=== PATIENT | female | born 1960 | race African-American/Black ===

== ENCOUNTER 2021-11-06 05:54 | Inpatient (IN) | payer MEDICAID ==
[~2021-11-06] VITALS: Ht 170.2 cm; Wt 94.3 kg
[2021-11-06 07:36] LABS: BASOPHILS % 0.3 % (0.0-2.0); EOSINOPHILS % 0.3 % (0.0-5.0); HEMATOCRIT. 38.8 % (36.0-48.0); HEMOGLOBIN. 12.5 g/dL (12.0-16.0); MEAN CORPUSCULAR HEMOGLOBIN 30.7 pg (28.0-32.0); MEAN CORPUSCULAR VOLUME 95.7 fL (81.0-99.0); MEAN PLATELET VOLUME 7.2 fl (7.4-10.4); MONOCYTES % 6.2 % (2.0-8.0); NEUTROPHILS % 84.2 % (40.0-76.0); PLATELET 242 x1000/uL (130-400); RED BLOOD CELL COUNT 4.06 mill/uL (4.2-5.4); RED CELL DISTRIBUTION WIDTH 15.6 % (11.6-14.6)
[2021-11-06 07:44] LABS: CHLORIDE 108 mEq/L (98-107)
[2021-11-06] MEDS ORDERED: ALBUTEROL (0.083%) 2.5MG/3ML NEB HHN STA (08:04)
[2021-11-06] MEDS ORDERED: IPRATROPIUM BROMIDE (0.02%) 0.5MG/2.5ML NEB HHN STA (08:04)
[2021-11-06] MEDS ORDERED: MAGNESIUM 2 G PREMIX 50 ML IV STA (08:04)
[2021-11-06] MEDS ORDERED: METHYLPREDNISOLONE SOD SUCC 125 MG/2 ML VIAL IV STA (08:04)
[2021-11-06] MEDS ORDERED: CEFTRIAXONE 1 G PREMIX 50 ML IV ONE (09:30)
[2021-11-06] MEDS ORDERED: AZITHROMYCIN 500MG/250ML 250 ML IV ONE (09:30)
[2021-11-06 09:37] LABS: PROTHROMBIN TIME 11.9 sec (9.6-11.0)
[2021-11-06 09:38] LABS: INR 1.1; PARTIAL THROMBOPLASTIN TIME 29.9 sec (23.4-31.0)
[2021-11-06] MEDS ORDERED: ACETAMINOPHEN 325MG TABLET PO PRN (10:45)
[2021-11-06] MEDS ORDERED: NA PHOS,M-B/NA PHOS,DI-BA ENEMA 118ML PR PRN (10:45)
[2021-11-06] MEDS ORDERED: CLONIDINE 0.1MG TABLET PO PRN (10:45)
[2021-11-06] MEDS ORDERED: NITROGLYCERIN 0.4MG TABLET SL SL PRN (10:45)
[2021-11-06] MEDS ORDERED: DOCUSATE SODIUM 100MG CAPSULE PO PRN (10:45)
[2021-11-06] MEDS ORDERED: BUTALBITAL/ACETAMINOPHEN/CAFFEINE 50/325/40MG TABLET PO PRN (10:45)
[2021-11-06] MEDS ORDERED: GUAIFENESIN 200MG/10ML SUGAR FREE UDC PO PRN (10:45)
[2021-11-06] MEDS ORDERED: IPRATROPIUM/ALBUTEROL 0.5-3(2.5)MG/3ML NEB NEB PRN (10:45)
[2021-11-06] MEDS ORDERED: MAGNESIUM/ALUMINUM HYDROXIDE/SIMETHICONE 30ML UDC PO PRN (10:45)
[2021-11-06] MEDS ORDERED: ONDANSETRON HCL 4MG/2ML INJ IV PRN (10:45)
[2021-11-06] MEDS: ACETAMINOPHEN 325MG TABLET PO PRN ×2 (11:50→21:18)
[2021-11-06 12:23] LABS: ETHANOL BLOOD < 10 mg/dL
[2021-11-06 12:26] LABS: LDL CHOLESTEROL 53 mg/dL (5-100)
[2021-11-06 12:28] LABS: HDL CHOLESTEROL 63 mg/dL (40-59); TOTAL IRON BINDING CAPACITY 422 ug/dL (250-450)
[2021-11-06 12:29] LABS: T4 FREE 1.43 ng/dL (0.76-1.46)
[2021-11-06 12:45] LABS: FOLIC ACID (FOLATE) SERUM 17.7 ng/mL (>5.38)
[2021-11-06 14:10] VITALS: BP 114/51
[2021-11-06 16:50] VITALS: BP 132/68
[2021-11-06 18:23] LABS: CREATINE KINASE 134 IU/L (26-192)
[2021-11-06 18:24] LABS: CREATINE KINASE MB FRACTION 2.4 ng/mL (0.5-3.6)
[2021-11-06] MEDS: CARVEDILOL 3.125 MG TABLET PO SCH (18:28)
[2021-11-06] MEDS: ENOXAPARIN 40MG/0.4ML SYR SUBCUT SCH (18:29)
[2021-11-06 19:55] LABS: *AMPHETAMINES SCREEN URINE NEGATIVE (NEGATIVE); *BARBITURATES SCREEN URINE NEGATIVE (NEGATIVE); *COCAINE SCREEN URINE NEGATIVE (NEGATIVE); METHADONE URINE SCREEN NEGATIVE (NEGATIVE); OPIATES URINE SCREEN NEGATIVE (NEGATIVE); PHENCYCLIDINE URINE SCREEN NEGATIVE (NEGATIVE)
[2021-11-06 19:56] LABS: CANNABINOID URINE SCREEN NEGATIVE (NEGATIVE)
[2021-11-06 19:57] LABS: *BENZODIAZEPINES SCREEN URINE NEGATIVE (NEGATIVE)
[2021-11-06 20:00] VITALS: BP 124/67
[2021-11-06] MEDS ORDERED: ZOLPIDEM TARTRATE 5MG TABLET PO PRN (21:00)
[2021-11-06] MEDS: FUROSEMIDE 40MG/4ML VIAL IVP SCH (21:17)
[2021-11-06] MEDS: FAMOTIDINE 20MG TABLET PO SCH (21:18)
[2021-11-06] MEDS: ASCORBIC ACID 500 MG TABLET PO SCH (21:18)
[2021-11-06] MEDS: SPIRONOLACTONE 25MG TABLET PO SCH (21:18)
[2021-11-07] VITALS: BP 126/68
[2021-11-07 00:51] LABS: CREATINE KINASE MB FRACTION 3.3 ng/mL (0.5-3.6)
[2021-11-07 04:00] VITALS: BP 127/63
[2021-11-07] MEDS: CARVEDILOL 3.125 MG TABLET PO SCH ×2 (06:41→17:21)
[2021-11-07] MEDS: ACETAMINOPHEN 325MG TABLET PO PRN (06:42)
[2021-11-07 07:59] VITALS: BP 125/57
[2021-11-07] MEDS ORDERED: CEFTRIAXONE 1 G PREMIX 50 ML IV SCH (09:00)
[2021-11-07] MEDS: SPIRONOLACTONE 25MG TABLET PO SCH ×2 (09:59→22:03)
[2021-11-07] MEDS: ASCORBIC ACID 500 MG TABLET PO SCH ×2 (09:59→22:03)
[2021-11-07] MEDS: FAMOTIDINE 20MG TABLET PO SCH ×2 (09:59→22:03)
[2021-11-07] MEDS: CHOLECALCIFEROL (D3) 1000 UNIT TABLET PO SCH (09:59)
[2021-11-07] MEDS: FUROSEMIDE 40MG/4ML VIAL IVP SCH ×2 (10:00→22:03)
[2021-11-07] MEDS: ZINC SULFATE 220 MG ( 50 ) CAPSULE PO SCH (10:00)
[2021-11-07 10:25] LABS: HEMATOCRIT. 31.3 % (36.0-48.0); HEMOGLOBIN. 10.4 g/dL (12.0-16.0); MEAN CORPUSCULAR HEMOGLOBIN 30.1 pg (28.0-32.0); MEAN CORPUSCULAR VOLUME 90.4 fL (81.0-99.0); MEAN PLATELET VOLUME 8.2 fl (7.4-10.4); PLATELET 242 x1000/uL (130-400); RED BLOOD CELL COUNT 3.47 mill/uL (4.2-5.4)
[2021-11-07] MEDS ORDERED: GUAIFENESIN-DM 200MG-20MG/10ML UDC PO PRN (10:30)
[2021-11-07 10:31] LABS: CHLORIDE 105 mEq/L (98-107)
[2021-11-07 10:38] LABS: PHOSPHORUS 2.9 mg/dL (2.5-4.9)
[2021-11-07] MEDS ORDERED: AZITHROMYCIN 500 MG in DEXT 5% WATER 250 ML IV SCH (11:00)
[2021-11-07 11:55] VITALS: BP 144/82
[2021-11-07] MEDS: BENZONATATE 100MG CAPSULE PO SCH ×2 (14:29→22:04)
[2021-11-07] MEDS: ENOXAPARIN 40MG/0.4ML SYR SUBCUT SCH (14:30)
[2021-11-07 15:43] VITALS: BP 134/75
[2021-11-07 16:42] LABS: PLATELET ESTIMATE NORMAL
[2021-11-07 20:00] VITALS: BP 126/76
[2021-11-07] MEDS: BUDESONIDE 0.5MG/2ML NEB HHN SCH (21:22)
[2021-11-07] MEDS: IPRATROPIUM/ALBUTEROL 0.5-3(2.5)MG/3ML NEB HHN SCH (21:22)
[2021-11-08] VITALS: BP 130/72
[2021-11-08] MEDS: IPRATROPIUM/ALBUTEROL 0.5-3(2.5)MG/3ML NEB HHN SCH ×4 (02:40→21:22)
[2021-11-08 04:00] VITALS: BP 126/66
[2021-11-08 08:00] VITALS: BP 118/66
[2021-11-08] MEDS: FUROSEMIDE 40MG/4ML VIAL IVP SCH ×2 (09:27→20:46)
[2021-11-08] MEDS: BENZONATATE 100MG CAPSULE PO SCH ×3 (09:28→20:46)
[2021-11-08] MEDS: SPIRONOLACTONE 25MG TABLET PO SCH ×2 (09:28→20:46)
[2021-11-08] MEDS: ASCORBIC ACID 500 MG TABLET PO SCH ×2 (09:28→20:47)
[2021-11-08] MEDS: FAMOTIDINE 20MG TABLET PO SCH ×2 (09:28→20:47)
[2021-11-08] MEDS: ZINC SULFATE 220 MG ( 50 ) CAPSULE PO SCH (09:28)
[2021-11-08] MEDS: CEFTRIAXONE 1,000 MG in DEXTROSE 5% WATER 50 ML IV SCH (10:37)
[2021-11-08] MEDS: CARVEDILOL 3.125 MG TABLET PO SCH ×2 (10:37→19:19)
[2021-11-08] MEDS: CHOLECALCIFEROL (D3) 1000 UNIT TABLET PO SCH (10:38)
[2021-11-08] MEDS: LAMOTRIGINE 25MG TABLET PO SCH ×2 (11:42→17:37)
[2021-11-08 11:53] VITALS: BP 120/68
[2021-11-08] MEDS: AZITHROMYCIN 500 MG in DEXT 5% WATER 250 ML IV SCH (14:17)
[2021-11-08 16:00] VITALS: BP 122/64
[2021-11-08] MEDS: BUDESONIDE 0.5MG/2ML NEB HHN SCH ×2 (17:23→21:23)
[2021-11-08] MEDS: ACETAMINOPHEN 325MG TABLET PO PRN (19:19)
[2021-11-08 20:00] VITALS: BP 132/65
[2021-11-08] MEDS: ENOXAPARIN 30MG/0.3ML SYR SUBCUT SCH (21:49)
[2021-11-09] VITALS: BP 120/57
[2021-11-09] MEDS: IPRATROPIUM/ALBUTEROL 0.5-3(2.5)MG/3ML NEB HHN SCH ×3 (03:05→14:28)
[2021-11-09 04:00] VITALS: BP 135/55
[2021-11-09] MEDS: CARVEDILOL 3.125 MG TABLET PO SCH ×2 (07:16→17:42)
[2021-11-09] MEDS: BENZONATATE 100MG CAPSULE PO SCH ×3 (07:16→23:23)
[2021-11-09] MEDS: ENOXAPARIN 30MG/0.3ML SYR SUBCUT SCH ×2 (07:20→18:00)
[2021-11-09 08:26] VITALS: BP 114/61
[2021-11-09] MEDS: CEFTRIAXONE 1,000 MG in DEXTROSE 5% WATER 50 ML IV SCH (08:54)
[2021-11-09] MEDS: FLUOXETINE HCL 10 MG CAPSULE PO SCH (08:55)
[2021-11-09] MEDS: ASCORBIC ACID 500 MG TABLET PO SCH ×2 (08:55→23:26)
[2021-11-09] MEDS: FAMOTIDINE 20MG TABLET PO SCH ×2 (08:55→23:23)
[2021-11-09] MEDS: ZINC SULFATE 220 MG ( 50 ) CAPSULE PO SCH (08:55)
[2021-11-09] MEDS: FUROSEMIDE 40MG/4ML VIAL IVP SCH ×2 (08:55→23:25)
[2021-11-09] MEDS: ARIPIPRAZOLE 5MG TABLET PO SCH (08:55)
[2021-11-09] MEDS: LAMOTRIGINE 25MG TABLET PO SCH ×2 (08:55→17:56)
[2021-11-09] MEDS: CHOLECALCIFEROL (D3) 1000 UNIT TABLET PO SCH (08:55)
[2021-11-09] MEDS: SPIRONOLACTONE 25MG TABLET PO SCH ×2 (08:56→23:24)
[2021-11-09] MEDS: BUDESONIDE 0.5MG/2ML NEB HHN SCH (09:04)
[2021-11-09] MEDS: ACETAMINOPHEN 325MG TABLET PO PRN ×2 (11:20→17:55)
[2021-11-09 12:25] VITALS: BP 102/56
[2021-11-09] MEDS: AZITHROMYCIN 500 MG in DEXT 5% WATER 250 ML IV SCH (13:03)
[2021-11-09 16:30] VITALS: BP 110/67
[2021-11-09 20:00] VITALS: BP 99/55
[2021-11-10] VITALS: BP 123/74
[2021-11-10] MEDS: BUDESONIDE 0.5MG/2ML NEB HHN SCH ×2 (00:10→08:07)
[2021-11-10] MEDS: IPRATROPIUM/ALBUTEROL 0.5-3(2.5)MG/3ML NEB HHN SCH ×4 (00:14→14:42)
[2021-11-10 04:00] VITALS: BP 115/79
[2021-11-10] MEDS: CARVEDILOL 3.125 MG TABLET PO SCH (05:13)
[2021-11-10] MEDS: BENZONATATE 100MG CAPSULE PO SCH (05:13)
[2021-11-10] MEDS: ENOXAPARIN 30MG/0.3ML SYR SUBCUT SCH (05:15)
[2021-11-10 08:07] VITALS: BP 108/76
[2021-11-10] MEDS: CEFTRIAXONE 1,000 MG in DEXTROSE 5% WATER 50 ML IV SCH (08:40)
[2021-11-10] MEDS: ZINC SULFATE 220 MG ( 50 ) CAPSULE PO SCH (08:40)
[2021-11-10] MEDS: FUROSEMIDE 40MG/4ML VIAL IVP SCH (08:40)
[2021-11-10] MEDS: ASCORBIC ACID 500 MG TABLET PO SCH (08:40)
[2021-11-10] MEDS: FLUOXETINE HCL 10 MG CAPSULE PO SCH (08:40)
[2021-11-10] MEDS: SPIRONOLACTONE 25MG TABLET PO SCH (08:41)
[2021-11-10] MEDS: FAMOTIDINE 20MG TABLET PO SCH (08:41)
[2021-11-10] MEDS: ARIPIPRAZOLE 5MG TABLET PO SCH (08:41)
[2021-11-10] MEDS: LAMOTRIGINE 25MG TABLET PO SCH (08:46)
[2021-11-10] MEDS: CHOLECALCIFEROL (D3) 1000 UNIT TABLET PO SCH (08:46)
[2021-11-10] MEDS ORDERED: ASPI-1406 MT (09:35)
[2021-11-10] MEDS ORDERED: SPIR25TA MT (09:35)
[2021-11-10] MEDS ORDERED: AZIT500T3 MT (09:35)
[2021-11-10] MEDS ORDERED: FURO-151 MT (09:35)
[2021-11-10] MEDS ORDERED: COR3 MT (09:35)
[2021-11-10] MEDS ORDERED: LOSA25TA3 MT (09:35)
[2021-11-10 09:43] VITALS: BP 108/76
== END 2021-11-10 15:20 | disposition home or self-care (01) | DRG 194 ==
LOC: ER 05:54 → 6WST 09:22 → EDBEDREQTM 09:24 → EDBEDREQ 09:24 → ENRESERV 10:21
PROVIDERS: ADMIT Internal Medicine; ATTEND Internal Medicine
DX: I11.0 Hypertensive heart disease with heart failure (principal); J96.21 Acute and chronic respiratory failure with hypoxia; E44.0 Moderate protein-calorie malnutrition; Z79.01 Long term (current) use of anticoagulants; I50.43 Acute on chronic combined systolic (congestive) and diastolic (congestive) heart failure; J44.0 Chronic obstructive pulmonary disease with (acute) lower respiratory infection; Z20.822 Contact with and (suspected) exposure to COVID-19; F25.0 Schizoaffective disorder, bipolar type; F17.210 Nicotine dependence, cigarettes, uncomplicated; Z91.51 Personal history of suicidal behavior; Z82.49 Family history of ischemic heart disease and other diseases of the circulatory system; Z88.6 Allergy status to analgesic agent; R79.89 Other specified abnormal findings of blood chemistry
CPT/HCPCS: 36415; 71045; 71275; 80053; 80061; 80305; 80320; 82550; 82553; 82607; 82746; 83036; 83540; 83550; 83605; 83735; 83880; 84100; 84145; 84439; 84443; 84484; 85025; 85379; 87426; 93005; 93306; 93970; 94640; 94644; 99291; J0456; J0696; J1650; J1940; J2930; J3475; J7060; J7626; G0480

== ENCOUNTER 2022-03-26 14:42 | Emergency (ER) | payer MEDICAID ==
[~2022-03-26] VITALS: Ht 170.2 cm; Wt 100.0 kg
[~2022-03-26 14:42] MED LIST: ASPI-1406 MT; AZIT500T3 MT; COR3 MT; FURO-151 MT; LOSA25TA3 MT; SPIR25TA MT
[2022-03-26 15:23] VITALS: BP 93/61
[2022-03-26] MEDS: HYDROCODONE/ACETAMINOPHEN 10/325MG TABLET PO ONE (17:19)
[2022-03-26] MEDS ORDERED: HYDR-4009 MT ×3 (17:38→21:36)
== END 2022-03-26 18:06 | disposition home or self-care (01) ==
LOC: ER 14:42
DX: M13.862 Other specified arthritis, left knee (principal); M25.462 Effusion, left knee; M25.461 Effusion, right knee; J44.9 Chronic obstructive pulmonary disease, unspecified; I11.0 Hypertensive heart disease with heart failure; I50.9 Heart failure, unspecified; I48.91 Unspecified atrial fibrillation; Z79.01 Long term (current) use of anticoagulants; Z88.6 Allergy status to analgesic agent
CPT/HCPCS: 99283